=== PATIENT | female | born 1985 | race Caucasian/White ===

== ENCOUNTER 2019-05-17 18:25 | Emergency (ER) | payer MEDICAID ==
[~2019-05-17] VITALS: Ht 157.5 cm; Wt 58.1 kg
[2019-05-17 18:56] VITALS: BP 108/69
--- NOTE | 2019-05-17 19:33 | NUR ---
PATIENT AMBULATED TO ER BED 9.
--- NOTE | 2019-05-17 19:42 | NUR ---
33 YO F BIB SELF AND PRESENTS TO ED C/O 8/10 LOWER ABDOMINAL PAIN. PT STATES SHE FEELS LIKE HER "STOMACH IS FULL". DENIES N/V/D. ALSO C/O PAIN/ITCHING WITH URINATION AND STATES SHE HAS GONE TO PEE ABOUT 10 TIMES TODAY. DENIES BLOOD IN URINE. LAST BM: TODAY. LMP: 05/01/19. -- PT AWAKE, ALERT, CALM, COOPERATIVE. ANSWERING QUESTIONS APPROPRIATELY. -- SKIN PINK, WARM, DRY. BREATHING EVEN, UNLABORED. PMH-- DENIES RX-- DENIES
[2019-05-17] MEDS ORDERED: IBUPROFEN 600 MG TAB PO ONE (19:55)
[2019-05-17 20:05] LABS: APPEARANCE,URINE CLEAR (CLEAR); BILIRUBIN,URINE NEGATIVE (NEGATIVE); BLOOD, URINE NEGATIVE (NEGATIVE); COLOR,URINE YELLOW (YELLOW); LEUKOCYTE ESTERASE ,URINE TRACE (NEGATIVE); NITRITE, URINE NEGATIVE (NEGATIVE); RBC,URINE 0-5 /HPF (0-5); UGLUCOSE NEGATIVE (NEGATIVE); WBC,URINE 0-5 /HPF (0-5)
[2019-05-17 20:40] VITALS: BP 113/59
--- NOTE | 2019-05-17 20:40 | NUR ---
Patient discharged with v/s stable. Written and verbal after care instructions given and explained. Patient alert, oriented and verbalized understanding of instructions. Ambulatory with steady gait. All questions addressed prior to discharge. ID band removed. Patient advised to follow up with PMD. Rx of MIRALAX, CIPRO given. Patient educated on indication of medication including possible reaction and side effects. Opportunity to ask questions provided and answered.
== END 2019-05-17 20:40 | disposition home or self-care (01) ==
LOC: MED 18:25
DX: N39.0 Urinary tract infection, site not specified (principal); K59.00 Constipation, unspecified; Z98.51 Tubal ligation status
CPT/HCPCS: 74018; 81001; 81025; 99284; Q0092